=== PATIENT | female | born 1990 | race Caucasian/White ===

== ENCOUNTER 2020-04-26 08:20 | Day surgery (SDC) | payer OTHER ==
[2020-04-23 16:00] LABS: BASOPHILS 0.2 % (0-2); EOSINOPHILS 0.7 % (0-7); HEMATOCRIT 37.8 % (36.0-48.0); HEMOGLOBIN 12.1 g/dL (12-16); IMMATURE GRANULOCYTES 0.2 % (0-5); LYMPHOCYTE ABS# 3.51 10x3/uL (1.18-3.74); LYMPHOCYTES 32.2 % (15-50); MCH 25.7 pg (26.0-34.0); MCV 80.4 fL (80.0-100.0); MONOCYTES 7.3 % (2-11); NEUTROPHIL ABS# 6.47 10x3/uL (1.56-6.13); NEUTROPHILS 59.4 % (40-80); PLATELET COUNT 342 10x3/uL (130-400); RDW 16.3 % (11.5-14.5); WBC 10.9 10x3/uL (4.8-10.8)
[2020-04-23 16:06] LABS: UDS - AMPHET NEGATIVE QUAL (NEGATIVE); UDS - BARB NEGATIVE QUAL (NEGATIVE); UDS - BENZO NEGATIVE QUAL (NEGATIVE); UDS - COCAINE NEGATIVE QUAL (NEGATIVE); UDS - OPIATE NEGATIVE QUAL (NEGATIVE); UDS - PCP NEGATIVE QUAL (NEGATIVE); UDS - THC POSITIVE QUAL (NEGATIVE)
[~2020-04-26] VITALS: Ht 152.4 cm; Wt 77.1 kg
--- NOTE | ~2020-04-26 | OP ---
PATIENT NAME: GÓMEZ COTTER MEDICAL RECORD: [id number] :89 LOCATION:[facility] ADMISSION DATE: SURGEON: COLE TAPIA MD DATE OF OPERATION: 04/26/2020 PREOPERATIVE DIAGNOSIS: Undesired fertility. POSTOPERATIVE DIAGNOSIS: Undesired fertility. PROCEDURES: 1. Diagnostic laparoscopy. 2. Bilateral salpingectomy. SURGEON: Cole Tapia MD COST COORDINATOR: Yuval Whitaker. ANESTHESIOLOGIST: Dr. Spivey. ANESTHESIA: General. FINDINGS: Unremarkable uterus, tubes, and ovaries bilaterally. What was visualized of the abdominal anatomy was also unremarkable. SPECIMENS REMOVED: Bilateral tubes. SPECIMEN DISPOSITION: Pathology. ESTIMATED BLOOD LOSS: Minimal. FLUIDS: 700 mL lactated Ringer's. URINE OUTPUT: Quantity sufficient void prior to this procedure. COMPLICATIONS: None. DRAINS: None. INDICATIONS: The patient is a 30-year-old multiparous female with undesired fertility. Risks, benefits and alternatives have been discussed. The patient understands the possibility of extrauterine gestation if is to occur. DESCRIPTION OF THE CASE: After informed consent was assured, the patient was taken to the operating room where anesthetic was obtained. The patient was supine on the table. After prepping and draping, an incision was made at the umbilicus to accommodate a 5-mm trocar, which was inserted without difficulty. Pneumoperitoneum was established. Now accessory ports were placed in the midline and the right lower quadrant. Through the right lower quadrant port, an Enseal was placed. Using a grasper from the midline, the right tube was elevated and using a coagulation cutter, the mesosalpinx was compressed, coagulated, and . The dissection was carried out underneath the right tube and across the tube at the cornual region. This tube was removed from the midline 8-mm port. Attention was now directed to the left tube. Starting medially, the tube was compressed, coagulated, and from the cornual region of the left uterus. Dissection again was carried out under the OPERATIVE REPORT [id number] GMÓEZ COTTER mesosalpinx and all the way inferior to the fimbria of the left tube. Once the tube was freed, it was removed from the 8-mm port site and sent to pathology. Pneumoperitoneum was released after Marcaine was delivered directly over both operative sites. After release of the pneumoperitoneum, the trocars were removed and all sites were closed with a subcuticular stitch and Dermabond applied. Sponge, lap, and needle counts were correct times 2. The patient went to the recovery area in stable condition. TRANSINT:[id number] Voice Confirmation ID: [id number] DOCUMENT ID: [id number] COLE TAPIA MD CC: [id number] DICTATION DATE: 04/26/20 1209 HOUSEKEEPING ATTENDANT: 04/26/20 1331 [address] [place] [id number] [place] [id number]
[~2020-04-26 08:20] MED LIST: IBUPROFEN800 MG PO; LAMICTAL100 MG PO; MARIJUANA; PRENAVITE1 TAB PO; TYLENOL W/CODEI1 TAB PO
[2020-04-26 09:13] VITALS: BP 126/72; Ht 152.4 cm; Wt 77.1 kg
[2020-04-26 09:25] LABS: HCG URINE NEGATIVE (NEGATIVE)
--- NOTE | 2020-04-26 13:45 | NUR ---
DISCHARGE INSTRUCTIONS REVIEWED WITH PT AND SPOUSE. BOTH VOICED UNDERSTANDING. PROVIDED COPY OF INSTRUCTIONS AND RX'S TO PT. IV THEN DC'D WITH CATH TIP INTACT. PT GETTING DRESSED FOR DISCHARGE.
--- NOTE | 2020-04-26 13:57 | NUR ---
PT DISCHARGED VIA W/C, ACCOMPANIED BY PAULINO CHAUDHARY, TO [facility] WITH SPOUSE DRIVING. ALL BELONGINGS WITH PT.
== END 2020-04-26 13:57 | disposition home or self-care (01) ==
LOC: D.OPS 08:20
PROVIDERS: ATTEND Obstetrics & Gynecology
DX: Z39.2 Encounter for routine postpartum follow-up (principal); Z31.84 Encounter for fertility preservation procedure